=== PATIENT | male | born 1990 | race Caucasian/White ===

== ENCOUNTER 2018-03-12 21:57 | Emergency (ER) | payer MEDICAID ==
[~2018-03-12] VITALS: Ht 177.8 cm; Wt 99.8 kg
[2018-03-12 23:13] LABS: Basophils # (auto) 0.1 uL; Basophils % (auto) 0.5 % (0.0-2.0); Eosinophils # (auto) 0 uL; Hemoglobin 14.8 g/dL (13.5-17.5); Lymphocytes # (auto) 0.7 uL; Lymphocytes % (auto) 5.9 % (10.0-50.0); Mean Corpuscular Hemoglobin 28.9 pg (28.0-32.0); Mean Corpuscular Hgb Conc. 33.6 g/dL (32.0-36.0); Mean Corpuscular Volume 85.9 fL (80.0-100.0); Monocytes # (auto) 0.9 uL; Monocytes % (auto) 7.3 % (0.0-12.0); Neutrophils # (auto) 10.4 uL; Neutrophils % (auto) 86.3 % (37.0-80.0); Platelet Count (auto) 241 10^3/uL (140-450); Red Blood Cells 5.12 10^6/uL (4.5-5.90); Red Cell Distribution Width 12.5 % (11.8-14.3); White Blood Cell 12.1 10^3/uL (4.4-10.8)
[2018-03-12 23:18] LABS: Urine Bacteria FEW /hpf (None Seen); Urine Blood Negative /uL (Negative); Urine Mucus FEW (None Seen); Urine Specific Gravity 1.029 (1.001-1.035); Urine WBC 1 /hpf (0 - 3)
[2018-03-12 23:37] LABS: Albumin 4.5 g/dL (3.4-5.0); BUN/Creatinine Ratio 8.8; Calcium 9.3 mg/dL (8.5-10.1); Potassium 3.7 mmol/L (3.5-5.1)
[2018-03-12 23:39] LABS: Total Protein 8.6 g/dL (6.4-8.2)
[2018-03-13] MEDS ORDERED: SODIUM CHLORIDE 0.9% 1,000 ML IV ONE (00:15)
[2018-03-13] MEDS ORDERED: PENICILLIN G PROC & BENZAT 1200000 UNITS/2 ML SYRG IM ONE (00:15)
[2018-03-13 02:48] VITALS: BP 138/87
== END 2018-03-13 03:00 | disposition home or self-care (01) ==
LOC: ER 21:57
DX: J02.9 Acute pharyngitis, unspecified (principal); R51 Headache; R42 Dizziness and giddiness; H92.09 Otalgia, unspecified ear; I10 Essential (primary) hypertension
CPT/HCPCS: 36415; 74176; 80053; 81001; 83690; 85025; 96360; 96372; 99284; J0558; J7030